=== PATIENT | female | born 1950 ===

== ENCOUNTER 2017-09-08 10:41 | Emergency (ER) | payer OTHER ==
[~2017-09-08] VITALS: Ht 157.5 cm; Wt 64.4 kg
[~2017-09-08 10:41] MED LIST: ALTACE10 MG PO; AVAPRO300 MG PO; CARDURA PO; CARDURA XL4 MG/BOTTL PO; CELLCEPT500 MG PO; CLONAZEPAM1 GM MC; COREG CR20 MG; COREG CR20 MG PO; FOLIC ACID20 MG; GLIPIZIDE5 MG PO; HUMALOG100 U/ML; METHOTREXA25 MG/ML; NEURONTIN300 MG PO; NEXIUM40 MG/PACK PO; NORVASC10 MG; PREDNISONE IN5 MG/ML; PRILOSEC OTC20 MG PO; PRILOSEC20 MG; SYNTHROID100 MCG; SYNTHROID88 MCG PO; VYTORIN 10/40 M1 TAB PO; ZOCOR5 MG; [UNRECOGNIZED DRUG - OTHER] PO
== END 2017-09-08 19:52 | disposition home or self-care (01) ==
LOC: ER 10:41
DX: K64.8 Other hemorrhoids (principal); K59.09 Other constipation; N39.0 Urinary tract infection, site not specified; R10.84 Generalized abdominal pain; B96.20 Unspecified Escherichia coli [E. coli] as the cause of diseases classified elsewhere

== ENCOUNTER → 2017-12-10 | Day surgery (SDC) | payer OTHER | END | disposition home or self-care (01) | LOC: ADM 12-08 12:45 → AMB-ENDOS 08:02 | DX: K57.32 Diverticulitis of large intestine without perforation or abscess without bleeding (principal); K64.1 Second degree hemorrhoids; K64.8 Other hemorrhoids ==

== ENCOUNTER 2018-12-19 10:00 | Emergency (ER) | payer OTHER ==
[~2018-12-19] VITALS: Ht 157.5 cm; Wt 59.9 kg
[2018-12-19] MEDS ORDERED: SYNTHROID75 MCG (10:38)
[2018-12-19] MEDS ORDERED: COZAAR100 MG (10:38)
[2018-12-19] MEDS ORDERED: PREDNISONE10 MG (10:40)
[2018-12-19] MEDS ORDERED: CELLCEPT500 MG (10:40)
== END 2018-12-19 18:21 | disposition home or self-care (01) ==
LOC: ER 10:00
DX: K52.89 Other specified noninfective gastroenteritis and colitis (principal)